=== PATIENT | male | born 1950 | race Caucasian/White ===

== ENCOUNTER → 2021-06-14 16:00 | Outpatient (CLI) | payer MEDICARE, SELFPAY ==
[2021-06-14 14:00] LABS: Basophils # 0.5 K/mm3 (0-0.2); Basophils % 1.2 % (0.1-2.0); Eosinophils % 0.1 % (0.1-12.0); Hematocrit 35.9 % (42.0-52.0); Hemoglobin 11.2 g/dL (14.1-18.0); Lymphocytes # 38.6 K/mm3 (0.7-4.5); Lymphocytes % 87.7 % (10-50); Mean Corpuscular HGB Conc 31.1 g/dL (31.8-35.4); Mean Corpuscular Hemoglobin 29.4 pg (27.0-31.2); Mean Corpuscular Volume 94.5 fl (80-94); Mean Platelet Volume 8.3 fl (7.4-10.4); Monocytes # 0.2 K/mm3 (0.1-1.0); Monocytes % 0.4 % (1.7-9.3); Neutrophils # 4.7 K/mm3 (1.8-7.8); Platelet Count 482 K/mm3 (142-424); Red Cell Distribution Width 16.2 % (11.5-17.5)
[2021-06-14 14:16] LABS: Neutrophils % 10.6 % (37.0-80.0)
[2021-06-14 14:20] LABS: MANUAL DIFFERENTIAL MANUAL DIFFERENTIAL (MANUAL DIFF)
[2021-06-14 15:18] LABS: Lymphocytes % 75 % (10-50); Monocytes % 4 % (2-9); Neutrophils % 15 % (42-76); Total Cells Counted 100
[2021-06-14 15:19] LABS: Anisocytosis 1+; Platelet Estimate Slight Increase
== END ==
PROVIDERS: Visit Provider Family Medicine
DX: J18.9 Pneumonia, unspecified organism (principal)
CPT/HCPCS: 85007; 85025

== ENCOUNTER 2023-09-20 09:41 | Emergency (ER) | payer MEDICARE, SELFPAY ==
[2023-09-20] VITALS (17 sets, daily range): BP systolic 137–171; BP diastolic 87–113; PULSE 89–120; RESP 18–34; TEMP 36.3; O2SAT 89–97; BMI 21.1; BMI 22.6
--- NOTE | 2023-09-20 09:39 | ECG_ITS ---
APPROVED REPORT Exam: Resting ECG HR:129 bpm ECG Measurements Heart Rate 129 AXES UT 127 P 65 QRSd 122 QRS 3 QT 319 T 14 QTc 395 Conclusion SINUS TACHYCARDIA WITH OCCASIONAL VENTRICULAR PREMATURE COMPLEXES WITH OCCASIONAL SUPRAVENTRICULAR PREMATURE COMPLEXES RIGHT BUNDLE BRANCH BLOCK [120+ ms QRS DURATION, UPRIGHT V1, 40+ ms S IN I/aVL/V4/V5/V6] MINIMAL VOLTAGE CRITERIA FOR LVH, CONSIDER NORMAL VARIANT [MEETS CRITERIA IN ONE OF: R(aVL), S(V1), R(V5), R(V5/V6)+S(V1)] ABNORMAL ECG UNCONFIRMED REPORT Electronically signed by : Brandon Trujillo, 09/20/2023 15:00:21
--- NOTE | 2023-09-20 09:40 | PC.NURSE ---
Dr. Trujillo at bedside
--- NOTE | 2023-09-20 09:43 | XR_ITS ---
FINAL REPORT CLINICAL HISTORY: SOA, recent bila pneumonia COVID COMPARISON: None FINDINGS: A single portable view of the chest was obtained. The heart size and pulmonary vascularity are within normal limits. The mediastinum is within normal limits. There are dense airspace opacities in the left perihilar region and left base as well as in the right midlung consistent with acute bilateral pneumonia. As no prior films are available for comparison purposes, the chronicity of the infiltrates cannot be determined. The bony thorax is intact. IMPRESSION: Dense airspace opacities in the left perihilar region and left base as well as in the right midlung consistent with acute bilateral pneumonia of uncertain chronicity. Reviewed, Interpreted and Dictated by Bakari Ferguson MD Transcribed by Cris Mota Authenticated and [facility]
[2023-09-20 09:50] LABS: Basophils # 1.9 K/mm3 (0-0.2); Basophils % 1.7 % (0.1-2.0); Hematocrit 33.6 % (42.0-52.0); Hemoglobin 10.4 g/dL (14.1-18.0); Lymphocytes # 93.3 K/mm3 (0.7-4.5); Mean Corpuscular Hemoglobin 30.7 pg (27.0-31.2); Mean Corpuscular Volume 98.9 fl (80-94); Mean Platelet Volume 8.4 fl (7.4-10.4); Monocytes # 0.3 K/mm3 (0.1-1.0); Monocytes % 0.3 % (1.7-9.3); Neutrophils # 18.2 K/mm3 (1.8-7.8); Platelet Count 437 K/mm3 (142-424); Red Cell Distribution Width 16.2 % (11.5-17.5)
[2023-09-20 09:52] LABS: VBG Base Excess 6.9 mmol/L (-2.4-2.3); VBG HCO3 30.9 mmol/L (23-30); VBG PCO2 45.6 mmol/L (35-51); VBG PH 7.45 mmol/L (7.31-7.41); VBG PO2 23.2 mmol/L (28-40); VBG Total CO2 32.3 mmol/L (23-27)
--- NOTE | 2023-09-20 09:56 | PC.NURSE ---
Dr. Trujillo at bedside for POCUS
[2023-09-20 09:57] LABS: Lactate Venous 2.6 mmol/L (0.4-2.0)
[2023-09-20 09:58] LABS: Potassium 5.7 mmoL/L (3.5-5.1)
--- NOTE | 2023-09-20 09:58 | PC.NURSE ---
called [facility] for most recent medical records our fax number was given([phone])
[2023-09-20 10:00] LABS: Alanine Aminotransferase 70 U/L (12-78); Albumin/Globulin Ratio 0.4 (1.1-1.8); Alkaline Phosphatase 138 U/L (38-126); Aspartate Amino Transferase 52 U/L (17-59); Bilirubin,Total 0.3 mg/dl (0.2-1.3); Blood Urea Nitrogen 19 mg/dl (9-20); Calcium 8.7 mg/dl (8.4-10.2); Carbon Dioxide 29 mmol/L (22.0-30.0); Chloride 98 mmol/L (98-107); Creatinine Clearance Estimated 58 mL/min (50-200); Estimated Glomerular Filt Rate 110 ml/min (>60); GFR (African American) 133 ML/MIN (>60); Globulin 7.5 g/dL (1.3-3.2); Glucose 137 mg/dl (74-100); Sodium 132 mmol/L (136-145); Total Protein,Serum 10.5 g/dl (6.3-8.2)
[2023-09-20 10:01] LABS: Lactic Acid 1.7 mmol/L (0.7-2.1)
[2023-09-20 10:03] LABS: Anion Gap 10.7 mEq/L (5-15)
[2023-09-20 10:04] LABS: Adenovirus,PCR Not Detected (NotDetected); Bordetella Pertussis Not Detected (NotDetected); Chlamydophila Pneumoniae, PCR Not Detected (NotDetected); Coronavirus 19, PCR Not Detected (NotDetected); Coronavirus 229E Not Detected (NotDetected); Coronavirus NL63 Not Detected (NotDetected); Coronavirus OC43 Not Detected (NotDetected); Coronovirus HKU1,PCR Not Detected (NotDetected); Human Metapneumovirus Not Detected (NotDetected); Influenza A, PCR Not Detected (NotDetected); Influenza AH1, 2009 Not Detected (NotDetected); Influenza AH1, PCR Not Detected (NotDetected); Influenza AH3,PCR Not Detected (NotDetected); Influenza B, PCR Not Detected (NotDetected); Mycoplasma Pneumoniae, PCR Not Detected (NotDetected); Parainfluenza 1, PCR Not Detected (NotDetected); Parainfluenza 2, PCR Not Detected (NotDetected); Parainfluenza 3, PCR Not Detected (NotDetected); Parainfluenza 4, PCR Not Detected (NotDetected); Respiratory Syncytial Virus Not Detected (NotDetected); Rhinovirus/Enterovirus Not Detected (NotDetected)
[2023-09-20 10:07] LABS: White Blood Count 113.7 K/mm3 (4.8-10.8)
[2023-09-20 10:08] LABS: MANUAL DIFFERENTIAL MANUAL DIFFERENTIAL (MANUAL DIFF)
[2023-09-20] MEDS: AZITHROMYCIN 500 MG in 0.9 % SODIUM CHLORIDE 250 ML 250 MG IV (10:12)
[2023-09-20 10:19] LABS: Troponin I < 0.01 ng/ml (0.00-0.034)
--- NOTE | 2023-09-20 10:20 | ED_ITS ---
Discharge Plan Disposition Patient Disposition: Xfer Other Chief Complaint: Shortness of Breath/Dyspnea Prescriptions Prescriptions: No Action mupirocin 2 % ointment 1 applic TOPICAL TID Qty: 22 10RF cefdinir 300 mg capsule PO Patient Comments: TAKE 1 CAPSULE BY MOUTH TWICE DAILY dexamethasone 4 mg tablet PO Patient Comments: TAKE 1 TABLET BY MOUTH ONCE DAILY doxycycline hyclate 100 mg capsule PO Patient Comments: TAKE 1 CAPSULE BY MOUTH ONCE DAILY Referrals Follow up/Referrals: Garrett Ball MD [Primary Care Provider] - See instructions Clinical Impressions Clinical Impression: Hyperleukocytosis, Leukemia, Multifocal pneumonia, Severe sepsis Discharge ED Provider: Saravanan Trujillo General Adult HPI General Chief complaint: Shortness of Breath/Dyspnea Stated complaint: SOA, low O2 Time Seen by Provider: 09/20/23 09:41 Mode of Arrival: EMS Source of Information: Patient Limitations: No Limitations Description of Symptoms (Recalled from ER Triage Doc. by RN): Patient was brought into the ED via [facility] for c/o SOA. Patient was seen in his pcp this morning for a follow up from a recent hospitalization for covid pneumonia. History of Present Illness HPI narrative: Patient is a 73-year-old male presents to the emergency department by EMS for respiratory distress. States he was diagnosed with leukemia 10 years ago but never started any therapy because he did not want to take any medications. 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 However a few weeks ago he was admitted to [facility] diagnosed with pneumonia and COVID and was discharged after 3 days he states. He was discharged on September 10 states that he did complete his antibiotics at home. His claim is that he was feeling asymptomatic wearing his oxygen at home and thought that he would be okay without his oxygen started driving to his doctor's appointment for a follow-up when he started to get short of breath. Prior to his COVID diagnosis he states that he did not wear oxygen regularly. Related Data Home Medications Medication Instructions Recorded Confirmed cefdinir 300 mg capsule mg PO 09/20/23 09/20/23 dexamethasone 4 mg tablet mg PO 09/20/23 09/20/23 doxycycline hyclate 100 mg capsule mg PO 09/20/23 09/20/23 Previous Rx's Medication Instructions Recorded mupirocin 2 % topical ointment 1 applic topical TID #22 grams 06/14/21 Allergies Allergy/AdvReac Type Severity Reaction Status Date / Time No Known Allergies Allergy Verified 09/20/23 08:31 [facility] Disclaimer: The information contained in this section may have been updated after the patient was seen, as this information can be updated by other users. Medical History Leukemia Social History Smoking Status: Never smoker alcohol intake: never current occupational status: retired Travel in the last 8 weeks: None ROS Obtained: Yes All systems reviewed & no additional complaints except as documented Physical Exam General General appearance: in distress Respiratory Respiratory exam: Present other (Tachypneic respiratory rate 40 oxygen saturations in the low 90s on 4 L nasal cannula no significant expiratory wheezing or focal respiratory sounds) Cardiovascular Cardiovascular exam: Present tachycardia (Heart rate 140 on my exam, irregular) Abdominal Exam Abdominal exam: Present soft; Absent distention or tenderness Neurological Exam Neurological exam: Present alert and oriented X3 Medical Decision Making Ethan Inquiry Pt receiving controlled substance: No Vital Signs: 09/20/23 09:43 09/20/23 09:50 09/20/23 09:54 Temperature Temperature Source Pulse Rate Pulse Rate [Right Brachial] Respiratory Rate Blood Pressure 165/100 H 171/113 H 147/97 H Blood Pressure [Right Arm] Blood Pressure Mean 115 132 113 Blood Pressure Mean [Right Arm] 02 Sat by Pulse Oximetry 95 Oxygen Delivery Method Nasal Cannula Oxygen Flow Rate (LPM) 3 09/20/23 09:55 09/20/23 10:00 09/20/23 10:17 Temperature 97.4 F L Temperature Source Oral Pulse Rate 112 H Pulse Rate [Right Brachial] 120 H Respiratory Rate 18 32 H 26 H Blood Pressure 153/95 H 138/96 H Blood Pressure [Right Arm] 165/100 H Blood Pressure Mean 113 Blood Pressure Mean [Right Arm] 121 02 Sat by Pulse Oximetry 89 L 92 L 93 L Oxygen Delivery Method Room Air Nasal Cannula Nasal Cannula Oxygen Flow Rate (LPM) 4 4 09/20/23 10:30 09/20/23 11:00 09/20/23 11:31 Temperature Temperature Source Pulse Rate 116 H 112 H 105 H Pulse Rate [Right Brachial] Respiratory Rate 26 H 28 H 29 H Blood Pressure 158/97 H 138/87 142/89 H Blood Pressure [Right Arm] Blood Pressure Mean Blood Pressure Mean [Right Arm] 02 Sat by Pulse Oximetry 94 L 93 L 93 L Oxygen Delivery Method Nasal Cannula Nasal Cannula Nasal Cannula Oxygen Flow Rate (LPM) 4 4 4 09/20/23 12:00 Temperature Temperature Source Pulse Rate 98 H Pulse Rate [Right Brachial] Respiratory Rate 26 H Blood Pressure 137/89 Blood Pressure [Right Arm] Blood Pressure Mean Blood Pressure Mean [Right Arm] 02 Sat by Pulse Oximetry 96 Oxygen Delivery Method Nasal Cannula Oxygen Flow Rate (LPM) 4 Lab Data Lab results reviewed: Yes I reviewed the patient's lab results. Lab Results 09/20/23 09:40: WBC 113.7 H*, RBC 3.40 L, Hgb 10.4 L, Hct 33.6 L, MCV 98.9 H, MCH 30.7, MCHC 31.0 L, RDW 16.2, Plt Count 437 H, MPV 8.4, Neut % (Auto) 16.0 L, Lymph % (Auto) 82.0 H, Carlton % (Auto) 0.3 L, Eos % (Auto) 0.0 L, Baso % (Auto) 1.7, Neut # (Auto) 18.2 H, Lymph # (Auto) 93.3 H, Carlton # (Auto) 0.3, Eos # (Auto) 0.0, Baso # (Auto) 1.9 H, Total Counted 100, Neutrophils % (Manual) 19 L, Lymphocytes % (Manual) 81 H, Platelet Estimate Slight increase, RBC Morphology Normal, Sodium 132 L, Potassium 5.7 H, Chloride 98, Carbon Dioxide 29, Anion Gap 10.7, BUN 19, Creatinine 0.70, Estimated Creat Clear 58, Estimated GFR 110, Est GFR ( Amer) 133, Glucose 137 H, Lactate 1.7, Uric Acid 3.0 L, Calcium 8.7, Magnesium 2.0, Total Bilirubin 0.3, AST 52, ALT 70, Alkaline Phosphatase 138 H, Troponin I < 0.01, NT-Pro-B Natriuret Pep 785 H, Total Protein 10.5 H, A lbumin 3.0 L, Globulin 7.5 H, Albumin/Globulin Ratio 0.4 L 09/20/23 09:43: VBG pH 7.45 H, VBG pCO2 45.6, VBG pO2 23.2 L, VBG HCO3 30.9 H, V BG Total CO2 32.3 H, VBG O2 Saturation , VBG Base Excess 6.9 H, VBG Lactic Acid 2.6 H 09/20/23 12:21: Urine Color Yellow, Urine Appearance Clear, Urine pH 7.0, Ur Specific [place] 1.010, Urine Protein Negative, Urine Glucose (UA) Negative, Urine Ketones Negative, Urine Blood Negative, Urine Nitrate Negative, Urine Bilirubin Negative, Urine Urobilinogen 1.0, Ur Leukocyte Esterase Negative 09/20/23 09:40 09/20/23 09:40 Orders (Tests/Meds): ED MEDICATIONS Generic Name Dose Route Start Last Admin Trade Name Freq PRN Reason Stop Dose Admin Piperacillin Sod/Tazobactam 100 mls @ 200 mls/hr 09/20/23 10:30 09/20/23 11:17 Sod 4.5 gm/ Sodium Chloride IV 09/30/23 10:29 200 mls/hr Q6H COURTNEY Administration Discontinued Medications Generic Name Dose Route Start Last Admin Trade Name Freq PRN Reason Stop Dose Admin Lactated Ringer's 1,000 mls @ 999 mls/hr 09/20/23 10:00 09/20/23 11:17 Lactated Ringer's 1000 Ml Bag IV 09/20/23 11:00 999 mls/hr .Q1H1M COURTNEY Administration Azithromycin 500 mg/ Sodium 250 mls @ 250 mls/hr 09/20/23 10:03 09/20/23 10:12 Chloride IV 09/20/23 10:04 250 mls/hr ONCE ONE Administration Vancomycin/PEG/NADA/Lysine/Water 1.25 gm in 250 mls @ 125 mls/hr 09/20/23 10:15 09/20/23 11:26 Vancomycin 1.25gm/250ml (Peg) Premix IV 09/20/23 12:14 125 mls/hr ONCE ONE Administration Iopamidol 70 ml 09/20/23 10:49 09/20/23 10:50 Iopamidol-370 (76%);100ml Bottle IV 09/20/23 10:50 70 ml ONCE ONE Administration Miscellaneous 1 each 09/20/23 10:15 Vancomycin Consult Request NOTAPPLIC 10/20/23 10:14 CONSULT PHARMACY [facility] Sodium Chloride 50 ml 09/20/23 10:49 09/20/23 10:50 0.9 % Sodium Chloride 50 Ml Vial IV 09/20/23 10:50 50 ml ONCE ONE Administration Sodium Chloride 10 ml 09/20/23 10:49 09/20/23 10:50 Sodium Chloride 0.9% 10ml Syr (Rad Only) IV 09/20/23 10:50 10 ml ONCE ONE Administration ORDERS Category Date Time Status CT angio chest PE protocol Stat Cat Scan 09/20/23 10:27 Taken POCUS Point of Care (ER Only) Stat Exams 09/20/23 09:52 Completed XR chest portable Stat Exams 09/20/23 09:43 Taken BNP [NT Pro Brain Natriuretic Pep.] Stat Lab 09/20/23 09:40 Completed Complete Blood Count Auto Diff Stat Lab 09/20/23 09:40 Completed Comprehensive Metabolic Panel Stat Lab 09/20/23 09:40 Completed Full Resp Panel w/COVID ([facility]) Routine Lab 09/20/23 09:58 Received Immunoglobulin G, Qn Stat Lab 09/20/23 09:40 Received Lactic Acid Stat Lab 09/20/23 09:40 Completed Magnesium Stat Lab 09/20/23 09:40 Completed Troponin I Q3H Lab 09/20/23 12:45 Ordered Troponin I Q3H Lab 09/20/23 15:45 Ordered Troponin I Stat Lab 09/20/23 09:40 Completed UA [Urinalysis and Microscopic] Stat Lab 09/20/23 12:21 Results Uric Acid Stat Lab 09/20/23 09:40 Completed Blood Culture Stat Micro 09/20/23 10:12 Received Venous Blood Gas Stat RT 09/20/23 09:43 Completed ECG Data Tracing #1: I reviewed this ECG and interpreted as documented below: Ventricular rate of 129 normal axis there is a right bundle branch block no acute ischemic changes noted there are premature atrial complexes and some PVCs as well Medical Decision Narrative: Patient is a 73-year-old male presenting today in respiratory distress tachypneic and tachycardic. On my evaluation his respiratory rate is 40 and his heart rate is 140. Chest x-ray was performed which I personally interpreted shows multifocal airspace disease with a dense consolidation on the left. Additionally patient's labs demonstrate that he has a hyperleukocytosis I was able to get some labs from his recent hospitalization at which point his white blood cell count was 40 but his white blood cell count today is greater than 100,000. I suspect he may have some significant leukostasis causing respiratory symptoms as well. Therefore his respiratory distress may be multifactorial including bacterial/viral pneumonia and/or leukostasis. It is unclear as to what type of leukemia he had, he is unsure of the exact name. 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 However in that situation Luis static symptoms are less likely also could have CML with a myeloid blast crisis or an alternative acute leukemia. Vancomycin Zosyn and azithromycin have been ordered as well as IV fluids. I will have a goals of care discussion with this patient and reassess. 1051 I was able to get records from [facility]. His white blood cell count was 50 on the . Therefore is more than doubled in less than 10 days. 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 I discussed this with the patient he is not sure of the exact type of leukemia that he has had in the past but suspecting that this is in fact the case patient clearly has evidence of active disease I had a goals of care discussion with him since he has been adamant about declining any type of oncologic intervention in the past and told him with his significant worsening that he is at risk of, and mild to be actively having symptoms of leukostasis seen only in hyperleukocytosis greater than 200,000 in the setting of CLL. Symptoms may be just from multifocal pneumonia but he still needs to be in a higher level of care where he has inpatient oncologic evaluation which may require induction chemotherapy or leukapheresis. I discussed this with the patient and his family and he states that he would like to proceed with these options and is willing potentially to go through this treatment if it is indicated according to the oncologist. Therefore I will attempt to transfer the patient for further management at a higher level of care. The [facility] will be my first call. Reassessment 0569 I spoke with [facility] transfer center and the hematology oncology doctor on-call who felt the patient did not need emergent transfer. They felt that the patient to be followed up outpatient however I spoke with our hospital medicine doctor here who is still uncomfortable managing this here without inpatient oncology. I subsequently spoke to [facility] I spoke with the [facility] on the hospital medicine service and they accepted the patient under the attending Dr. Hdez patient has remained stable and infection improving hemodynamically. Family is aware of this plan and agreeable. Critical Care Critical Care Time Critical Care Time: Yes Attestation: On 09/20/23, the high probability of a clinically significant, sudden or life threatening deterioration of the following system(s) required my full and direct attention, intervention and personal management. The time I documented below is in addition to time spent performing reported procedures but includes the following listed in this critical care notation. Total Time Total Critical Care Time: 65
--- NOTE | 2023-09-20 10:27 | CT_ITS ---
FINAL REPORT TECHNIQUE: The patient was injected with IV contrast. Axial images were obtained through the chest in a PE protocol. 3-D reconstruction images were also performed. Individualized dose reduction techniques using automated exposure control or adjustment of the MA and/or KV according to patient's size were employed. CLINICAL HISTORY: f/u abn CXR, WBC >100k FINDINGS: Mediastinal vasculature is adequately opacified. No pulmonary artery filling defects are identified to suggest PE. There is no aortic dissection. There is no axillary adenopathy. There is no hilar or mediastinal adenopathy. The heart size is normal. There is no pericardial or pleural effusion. Limited images of the upper abdomen are unremarkable. There is extensive airspace opacity throughout the left upper lobe and lingula. There are patchy airspace infiltrates in the periphery of the right upper lobe and both lower lobes. IMPRESSION: No pulmonary embolus or dissection. Multifocal airspace infiltrates consistent with acute pneumonia. Reviewed, Interpreted and Dictated by Bakari Ferguson MD Transcribed by Marlee Lee Authenticated and . [facility]
[2023-09-20 10:32] LABS: NT Pro Brain Natriuretic Pep. 785 pg/mL (0-125)
--- NOTE | 2023-09-20 10:32 | PC.NURSE ---
Dr. Trujillo at bedside discussing care and results with pt & his family.
--- NOTE | 2023-09-20 10:42 | PC.NURSE ---
Calling [facility] for transfer
[2023-09-20] MEDS: SODIUM CHLORIDE 0.9% 10ML SYR (RAD ONLY) 10 ML IV (10:50)
[2023-09-20] MEDS: 0.9 % SODIUM CHLORIDE 50 ML VIAL IV (10:50)
[2023-09-20] MEDS: IOPAMIDOL-370 (76%);100ML BOTTLE 70 ML IV (10:50)
[2023-09-20 11:00] LABS: Lymphocytes % 81 % (10-50); Neutrophils % 19 % (42-76); RBC Morphology Normal; Total Cells Counted 100
[2023-09-20 11:01] LABS: Platelet Estimate Slight Increase
[2023-09-20] MEDS: LACTATED RINGERS 1000ML 1,000 ML 999 ML IV (11:17)
[2023-09-20] MEDS: PIPERACILLIN/TAZO 4.5 GM in 0.9 % SODIUM CHLORIDE 100 ML IV (11:17)
[2023-09-20] MEDS: VANCOMYCIN/WATER FOR INJ (PEG) 1.25 GM/250 ML PIGGYBACK IV (11:26)
--- NOTE | 2023-09-20 11:30 | PC.NURSE ---
called [facility] for status update let me know they are still waiting on a provider
--- NOTE | 2023-09-20 11:46 | PC.NURSE ---
speaking with [facility]
--- NOTE | 2023-09-20 12:04 | PC.NURSE ---
Dr. Trujillo s/w Dr. Trinh
--- NOTE | 2023-09-20 12:13 | PC.NURSE ---
calling [facility] for transfer
[2023-09-20 12:24] LABS: Microscopic, Urine URINE MICROSCOPIC (MICROSCOPIC)
[2023-09-20 12:27] LABS: Appearance,Urine CLEAR (Clear); Bilirubin,Urine Negative (Negative); Blood, Urine Negative (Negative); Color,Urine YELLOW (Yellow); Glucose,Urine (UA) Negative (Negative); Ketones,Urine Negative (Negative); Leukocyte Esterase,Urine Negative (Negative); Nitrate,Urine Negative (Negative); Protein,Urine Negative (Negative)
[2023-09-20 13:04] LABS: RBC,Urine Occasional #/hpf (0-3)
[2023-09-20 13:06] LABS: Bacteria,Urine Trace /lpf
[2023-09-20 13:52] LABS: Reflex Lactic Add Lactic Reflex
--- NOTE | 2023-09-20 14:25 | PC.NURSE ---
rounded on pt let him know we were still waiting on bed assingment
--- NOTE | 2023-09-20 14:53 | PC.NURSE ---
called ems let them know pt was ready
--- NOTE | 2023-09-20 15:11 | PC.NURSE ---
Called report to [facility]- A unit, . Gave report to [facility] notified that pt is ready for transport
[2023-09-21 16:54] LABS: Immunoglobulin G, Qn 5986 mg/dL (603-1613)
== END 2023-09-20 15:29 | disposition other institution (70) ==
PROVIDERS: Emergency Provider Student in an Organized Health Care Education/Training Program; PCP Family Medicine
DX: A41.89 Other specified sepsis (principal); R65.20 Severe sepsis without septic shock; J18.8 Other pneumonia, unspecified organism; D72.829 Elevated white blood cell count, unspecified; E87.5 Hyperkalemia; E87.1 Hypo-osmolality and hyponatremia; C85.90 Non-Hodgkin lymphoma, unspecified, unspecified site; R94.31 Abnormal electrocardiogram [ECG] [EKG]; R06.03 Acute respiratory distress
CPT/HCPCS: 71045; 71275; 80053; 81001; 82784; 82803; 83605; 83735; 83880; 84484; 84550; 85007; 85025; 87040; 87086; 87581; 87632; 87635; 87798; 93005; 96365; 96366; 96375; 99291; J0456; J2543; Q9967

== ENCOUNTER 2023-09-27 12:05 | Outpatient (CLI) | payer MEDICARE, SELFPAY ==
[2023-09-27] MEDS: cefTRIAXone 1GM VIAL 2 GM IM (13:03)
[2023-09-27 13:10] VITALS: BP 116/74; PULSE 68; RESP 18; TEMP 36.8; O2SAT 98
--- NOTE | 2023-09-27 14:19 | PC.NURSE ---
Pt and family arrived today and stated pts oxygen tank was empty and they didnt have another one. Stated his O2 tanks were serviced by [employer]. Millie barrera contacted about potential options. she called [employer] and they explained that the patients family could either come pickle maker a portable tank or one could be delivered to the hospital after 5pm. Pt and family declined both these options and stated they would drive straight home to change out his tanks because they could not wait that long.
== END 2023-09-27 13:15 | disposition home or self-care (01) ==
LOC: INF 12:07
PROVIDERS: PCP Family Medicine
DX: A41.89 Other specified sepsis (principal)
CPT/HCPCS: 96372; J0696

== ENCOUNTER 2023-09-28 12:06 | Outpatient (CLI) | payer MEDICARE, SELFPAY ==
[2023-09-28 12:41] VITALS: BP 117/68; PULSE 81; RESP 18; TEMP 36.7; O2SAT 99
[2023-09-28] MEDS: cefTRIAXone 1GM VIAL 2 GM IM (12:41)
== END 2023-09-28 12:50 | disposition home or self-care (01) ==
LOC: INF 12:07
PROVIDERS: PCP Family Medicine; Visit Provider Internal Medicine
DX: A41.89 Other specified sepsis (principal)
CPT/HCPCS: 96372; J0696

== ENCOUNTER 2023-09-29 12:00 | Outpatient (CLI) | payer MEDICARE, SELFPAY ==
[2023-09-29 12:13] VITALS: BMI 19.0
[2023-09-29 12:35] VITALS: BP 133/72; PULSE 107; RESP 17; O2SAT 100
[2023-09-29] MEDS: cefTRIAXone 1GM VIAL 2 GM IM (12:35)
[2023-09-29 12:44] LABS: Chloride 102 mmol/L (98-107); Potassium 4.1 mmoL/L (3.5-5.1); Sodium 134 mmol/L (136-145)
[2023-09-29 12:46] LABS: Blood Urea Nitrogen 16 mg/dl (9-20); Creatinine Clearance Estimated 58 mL/min (50-200); Estimated Glomerular Filt Rate 110 ml/min (>60); GFR (African American) 133 ML/MIN (>60)
[2023-09-29 12:47] LABS: Alanine Aminotransferase 49 U/L (12-78); Albumin Level 2.6 g/dl (3.5-5.0); Albumin/Globulin Ratio 0.4 (1.1-1.8); Alkaline Phosphatase 112 U/L (38-126); Anion Gap 6.1 mEq/L (5-15); Aspartate Amino Transferase 38 U/L (17-59); Calcium 8.3 mg/dl (8.4-10.2); Carbon Dioxide 30 mmol/L (22.0-30.0); Globulin 6.6 g/dL (1.3-3.2); Glucose 121 mg/dl (74-100); Total Protein,Serum 9.2 g/dl (6.3-8.2)
[2023-09-29 12:50] LABS: Basophils # 1.3 K/mm3 (0-0.2); Basophils % 2.6 % (0.1-2.0); Eosinophils # 0.1 K/mm3 (0.0-0.4); Eosinophils % 0.2 % (0.1-12.0); Hematocrit 26.9 % (42.0-52.0); Hemoglobin 8.5 g/dL (14.1-18.0); Lymphocytes # 39.7 K/mm3 (0.7-4.5); Lymphocytes % 83.3 % (10-50); Mean Corpuscular HGB Conc 31.6 g/dL (31.8-35.4); Mean Corpuscular Hemoglobin 30.2 pg (27.0-31.2); Mean Corpuscular Volume 95.3 fl (80-94); Mean Platelet Volume 8.5 fl (7.4-10.4); Monocytes # 0.1 K/mm3 (0.1-1.0); Monocytes % 0.3 % (1.7-9.3); Neutrophils # 6.4 K/mm3 (1.8-7.8); Platelet Count 181 K/mm3 (142-424); Red Blood Count 2.82 M/mm3 (4.60-6.20); Red Cell Distribution Width 16.7 % (11.5-17.5)
[2023-09-29 12:52] LABS: Bilirubin,Total 0.1 mg/dl (0.2-1.3)
[2023-09-29 12:53] LABS: C-Reactive Protein 84.8 mg/L (0-4)
[2023-09-29 13:06] LABS: Neutrophils % 13.5 % (37.0-80.0); White Blood Count 47.6 K/mm3 (4.8-10.8)
[2023-09-29 13:07] LABS: MANUAL DIFFERENTIAL MANUAL DIFFERENTIAL (MANUAL DIFF)
[2023-09-29 13:38] LABS: Lymphocytes % 87 % (10-50); Neutrophils % 13 % (42-76); Platelet Estimate Normal; RBC Morphology Normal; Total Cells Counted 100
== END 2023-09-29 12:50 | disposition home or self-care (01) ==
LOC: INF 12:01
PROVIDERS: PCP Family Medicine; Visit Provider Pediatrics Adolescent Medicine
DX: J18.9 Pneumonia, unspecified organism (principal); A41.89 Other specified sepsis
CPT/HCPCS: 36415; 80053; 85007; 85025; 86140; 96372; J0696

== ENCOUNTER 2023-09-30 11:46 | Outpatient (CLI) | payer MEDICARE, SELFPAY ==
[2023-09-30] MEDS: cefTRIAXone 1GM VIAL 2 GM IM (12:06)
== END 2023-09-30 23:59 | disposition home or self-care (01) ==
LOC: INF 11:47
PROVIDERS: PCP Family Medicine; Visit Provider Internal Medicine Infectious Disease
DX: J18.9 Pneumonia, unspecified organism (principal); A41.89 Other specified sepsis
CPT/HCPCS: 96372; J0696

== ENCOUNTER 2023-10-13 18:00 | Outpatient (CLI) | payer MEDICARE, SELFPAY ==
[2023-10-13 18:54] LABS: Alanine Aminotransferase 19 U/L (12-78); Albumin Level 3.1 g/dl (3.5-5.0); Albumin/Globulin Ratio 0.5 (1.1-1.8); Alkaline Phosphatase 96 U/L (38-126); Anion Gap 9.9 mEq/L (5-15); Aspartate Amino Transferase 18 U/L (17-59); Bilirubin,Total 0.2 mg/dl (0.2-1.3); Blood Urea Nitrogen 18 mg/dl (9-20); Calcium 8.6 mg/dl (8.4-10.2); Carbon Dioxide 28 mmol/L (22.0-30.0); Chloride 103 mmol/L (98-107); Estimated Glomerular Filt Rate 110 ml/min (>60); GFR (African American) 133 ML/MIN (>60); Globulin 6.5 g/dL (1.3-3.2); Glucose 121 mg/dl (74-100); Potassium 3.9 mmoL/L (3.5-5.1); Sodium 137 mmol/L (136-145); Total Protein,Serum 9.6 g/dl (6.3-8.2)
[2023-10-13 19:06] LABS: Basophils # 0.5 K/mm3 (0-0.2); Basophils % 1.3 % (0.1-2.0); Eosinophils # 0.2 K/mm3 (0.0-0.4); Eosinophils % 0.5 % (0.1-12.0); Hemoglobin 9.8 g/dL (14.1-18.0); Lymphocytes # 32.7 K/mm3 (0.7-4.5); Lymphocytes % 83.5 % (10-50); Mean Corpuscular HGB Conc 30.7 g/dL (31.8-35.4); Mean Corpuscular Hemoglobin 29.7 pg (27.0-31.2); Mean Corpuscular Volume 96.9 fl (80-94); Monocytes # 0.3 K/mm3 (0.1-1.0); Monocytes % 0.7 % (1.7-9.3); Neutrophils # 5.5 K/mm3 (1.8-7.8); Platelet Count 400 K/mm3 (142-424); Red Cell Distribution Width 18.5 % (11.5-17.5); White Blood Count 39.1 K/mm3 (4.8-10.8)
[2023-10-13 19:10] LABS: MANUAL DIFFERENTIAL MANUAL DIFFERENTIAL (MANUAL DIFF)
[2023-10-13 20:22] LABS: Anisocytosis 2+; Lymphocytes % 91 % (10-50); Neutrophils % 9 % (42-76); Platelet Estimate Normal; Poikilocytosis 1+; Rouleaux 1+; Total Cells Counted 100
== END 2023-10-13 23:59 | disposition home or self-care (01) ==
LOC: LAB.DROPOF 10-14 09:01
PROVIDERS: PCP Family Medicine; Visit Provider Family Medicine
DX: U07.1 COVID-19 (principal); A41.9 Sepsis, unspecified organism; R65.20 Severe sepsis without septic shock
CPT/HCPCS: 80053; 85007; 85025; 85027

== ENCOUNTER 2023-11-10 11:17 | Outpatient (CLI) | payer MEDICARE, SELFPAY ==
[2023-11-10 18:27] LABS: Basophils # 0.2 K/mm3 (0-0.2); Basophils % 0.8 % (0.1-2.0); Eosinophils # 0.1 K/mm3 (0.0-0.4); Eosinophils % 0.7 % (0.1-12.0); Hemoglobin 10.7 g/dL (14.1-18.0); Lymphocytes # 15.8 K/mm3 (0.7-4.5); Lymphocytes % 81.6 % (10-50); Mean Corpuscular HGB Conc 32.5 g/dL (31.8-35.4); Mean Corpuscular Hemoglobin 31.2 pg (27.0-31.2); Mean Corpuscular Volume 95.9 fl (80-94); Mean Platelet Volume 8.7 fl (7.4-10.4); Monocytes # 0.2 K/mm3 (0.1-1.0); Neutrophils # 3.1 K/mm3 (1.8-7.8); Neutrophils % 15.8 % (37.0-80.0); Platelet Count 238 K/mm3 (142-424); Red Blood Count 3.44 M/mm3 (4.60-6.20); Red Cell Distribution Width 18.8 % (11.5-17.5); White Blood Count 19.3 K/mm3 (4.8-10.8)
[2023-11-10 18:33] LABS: MANUAL DIFFERENTIAL MANUAL DIFFERENTIAL (MANUAL DIFF)
[2023-11-10 19:09] LABS: Lymphocytes % 79 % (10-50); Monocytes % 3 % (2-9); Neutrophils % 18 % (42-76); Total Cells Counted 100
[2023-11-10 19:12] LABS: Anisocytosis 1+; Platelet Estimate Normal
[2023-11-10 19:15] LABS: Alanine Aminotransferase 11 U/L (12-78); Albumin Level 3.5 g/dl (3.5-5.0); Albumin/Globulin Ratio 0.6 (1.1-1.8); Alkaline Phosphatase 75 U/L (38-126); Anion Gap 6.2 mEq/L (5-15); Aspartate Amino Transferase 15 U/L (17-59); Blood Urea Nitrogen 26 mg/dl (9-20); Carbon Dioxide 27 mmol/L (22.0-30.0); Chloride 107 mmol/L (98-107); Estimated Glomerular Filt Rate 94 ml/min (>60); GFR (African American) 114 ML/MIN (>60); Globulin 5.9 g/dL (1.3-3.2); Glucose 114 mg/dl (74-100); Potassium 4.2 mmoL/L (3.5-5.1); Sodium 136 mmol/L (136-145); Total Protein,Serum 9.4 g/dl (6.3-8.2)
[2023-11-10 19:18] LABS: Bilirubin,Total 0.1 mg/dl (0.2-1.3)
== END 2023-11-10 23:59 | disposition home or self-care (01) ==
LOC: LAB.DROPOF 11-13 11:17
PROVIDERS: PCP Family Medicine; Visit Provider Family Medicine
DX: R53.1 Weakness (principal)
CPT/HCPCS: 80053; 85007; 85025; 85027

== ENCOUNTER 2024-02-16 09:00 | Outpatient (CLI) | payer MEDICARE, SELFPAY ==
[2024-02-16 18:29] LABS: Albumin Level 3.8 g/dl (3.5-5.0); Chloride 105 mmol/L (98-107); Sodium 138 mmol/L (136-145)
[2024-02-16 18:31] LABS: Basophils # 0.1 K/mm3 (0-0.2); Basophils % 0.9 % (0.1-2.0); Eosinophils # 0.1 K/mm3 (0.0-0.4); Eosinophils % 0.4 % (0.1-12.0); Hematocrit 33.1 % (42.0-52.0); Hemoglobin 11.2 g/dL (14.1-18.0); Lymphocytes % 78.2 % (10-50); Mean Corpuscular HGB Conc 33.8 g/dL (31.8-35.4); Mean Corpuscular Volume 94.7 fl (80-94); Mean Platelet Volume 8.9 fl (7.4-10.4); Monocytes # 0.2 K/mm3 (0.1-1.0); Monocytes % 1.6 % (1.7-9.3); Neutrophils # 2.7 K/mm3 (1.8-7.8); Neutrophils % 18.9 % (37.0-80.0); Platelet Count 160 K/mm3 (142-424); Red Blood Count 3.49 M/mm3 (4.60-6.20); Red Cell Distribution Width 16.7 % (11.5-17.5); White Blood Count 14.1 K/mm3 (4.8-10.8)
[2024-02-16 18:32] LABS: Alanine Aminotransferase 29 U/L (12-78); Albumin/Globulin Ratio 0.6 (1.1-1.8); Alkaline Phosphatase 57 U/L (38-126); Aspartate Amino Transferase 31 U/L (17-59); Bilirubin,Total 0.4 mg/dl (0.2-1.3); Blood Urea Nitrogen 22 mg/dl (9-20); Carbon Dioxide 28 mmol/L (22.0-30.0); Cholesterol 174 mg/dl (140-200); Estimated Glomerular Filt Rate 82 ml/min (>60); GFR (African American) 100 ML/MIN (>60); Globulin 6.3 g/dL (1.3-3.2); Total Protein,Serum 10.1 g/dl (6.3-8.2); Triglycerides 84 mg/dl (30-150); VLDL Cholesterol 17 mg/dL (0-40)
[2024-02-16 18:33] LABS: Glucose 85 mg/dl (74-100); HDL Cholesterol 29 mg/dl (40-60)
[2024-02-16 18:44] LABS: Direct LDL Cholesterol 99.51 mg/dL (100-129); MANUAL DIFFERENTIAL MANUAL DIFFERENTIAL (MANUAL DIFF)
[2024-02-16 19:01] LABS: Prostate Specific Ag Screen 2.8 ng/ml (0.0-4.0)
[2024-02-16 20:13] LABS: Eosinophils % 1 % (0-3); Lymphocytes % 68 % (10-50); Monocytes % 4 % (2-9); Neutrophils % 27 % (42-76); Total Cells Counted 100
[2024-02-16 20:14] LABS: Anisocytosis 2+; Microcytosis 2+; Platelet Estimate Slight Decrease; Polychromasia 1+
== END 2024-02-16 23:59 | disposition home or self-care (01) ==
LOC: LAB.DROPOF 02-19 09:01
PROVIDERS: PCP Family Medicine; Visit Provider Family Medicine
DX: C95.90 Leukemia, unspecified not having achieved remission (principal); E78.5 Hyperlipidemia, unspecified; Z12.5 Encounter for screening for malignant neoplasm of prostate
CPT/HCPCS: 80053; 80061; 85007; 85025; 85027; G0103

== ENCOUNTER 2024-06-05 11:45 | Outpatient (CLI) | payer MEDICARE, SELFPAY ==
[2024-06-05 18:50] LABS: Basophils # 0.1 K/mm3 (0-0.2); Basophils % 0.3 % (0.1-2.0); Eosinophils # 0.1 K/mm3 (0.0-0.4); Eosinophils % 0.5 % (0.1-12.0); Hematocrit 31.7 % (42.0-52.0); Hemoglobin 10.1 g/dL (14.1-18.0); Lymphocytes # 17.6 K/mm3 (0.7-4.5); Mean Corpuscular HGB Conc 31.9 g/dL (31.8-35.4); Mean Corpuscular Hemoglobin 30.8 pg (27.0-31.2); Mean Corpuscular Volume 96.6 fl (80-94); Mean Platelet Volume 9.6 fl (7.4-10.4); Monocytes # 0.3 K/mm3 (0.1-1.0); Monocytes % 1.2 % (1.7-9.3); Neutrophils # 3.7 K/mm3 (1.8-7.8); Neutrophils % 16.8 % (37.0-80.0); Platelet Count 195 K/mm3 (142-424); Red Blood Count 3.28 M/mm3 (4.60-6.20); White Blood Count 21.7 K/mm3 (4.8-10.8)
[2024-06-05 18:55] LABS: MANUAL DIFFERENTIAL MANUAL DIFFERENTIAL (MANUAL DIFF)
[2024-06-05 20:05] LABS: Lymphocytes % 76 % (10-50); Monocytes % 4 % (2-9); Neutrophils % 18 % (42-76); RBC Morphology Normal; Total Cells Counted 100
[2024-06-05 20:06] LABS: Platelet Estimate Normal
== END 2024-06-05 23:59 | disposition home or self-care (01) ==
LOC: LAB.DROPOF 06-06 13:16
PROVIDERS: PCP Family Medicine; Visit Provider Family Medicine
DX: C95.90 Leukemia, unspecified not having achieved remission (principal)
CPT/HCPCS: 85007; 85025; 85027

== ENCOUNTER 2024-09-06 10:00 | Outpatient (CLI) | payer MEDICARE, SELFPAY ==
[2024-09-06 18:47] LABS: Basophils % 0.2 % (0.1-2.0); Eosinophils # 0.1 Kmm3 (0.0-0.4); Eosinophils % 0.5 % (0.1-12.0); Hematocrit 30.8 % (42.0-52.0); Hemoglobin 9.9 g/dL (14.1-18.0); Immature Granulocytes # 0.03 10^3uL; Immature Granulocytes % 0.2 %; Lymphocytes # 14.7 K/mm3 (0.7-4.5); Lymphocytes % 84.9 % (10-50); Mean Corpuscular HGB Conc 32.1 g/dL (31.8-35.4); Mean Corpuscular Hemoglobin 30.8 pg (27.0-31.2); Mean Platelet Volume 9.5 fl (7.4-10.4); Monocytes # 0.2 K/mm3 (0.1-1.0); Monocytes % 1.3 % (1.7-9.3); Neutrophils # 2.2 K/mm3 (1.8-7.8); Neutrophils % 12.9 % (37.0-80.0); Nucleated Red Blood Cells # 0 10^3/uL; Nucleated Red Blood Cells % 0 %; Platelet Count 152 K/mm3 (142-424); Red Blood Count 3.21 M/mm3 (4.60-6.20); Red Cell Distribution Width 17.5 % (11.5-17.5); Red Cell Distribution Width-SD 61.2 fL; White Blood Count 17.3 K/mm3 (4.8-10.8)
[2024-09-06 18:48] LABS: MANUAL DIFFERENTIAL MANUAL DIFFERENTIAL (MANUAL DIFF)
[2024-09-06 18:52] LABS: Alanine Aminotransferase 18 U/L (12-78); Albumin Level 3.5 g/dl (3.5-5.0); Albumin/Globulin Ratio 0.6 (1.1-1.8); Alkaline Phosphatase 79 U/L (38-126); Anion Gap 5.4 mEq/L (5-15); Aspartate Amino Transferase 24 U/L (17-59); Bilirubin,Total 0.4 mg/dl (0.2-1.3); Blood Urea Nitrogen 27 mg/dl (9-20); Calcium 8.5 mg/dl (8.4-10.2); Carbon Dioxide 26 mmol/L (22.0-30.0); Chloride 108 mmol/L (98-107); Chol/HDL Ratio 5.2 (1-3.5); Cholesterol 135 mg/dl (140-200); Estimated Glomerular Filt Rate 73 ml/min (>60); GFR (African American) 88 ML/MIN (>60); Globulin 6.1 g/dL (1.3-3.2); Glucose 101 mg/dl (74-100); HDL Cholesterol 26 mg/dl (40-60); Potassium 4.4 mmoL/L (3.5-5.1); Sodium 135 mmol/L (136-145); Total Protein,Serum 9.6 g/dl (6.3-8.2); Triglycerides 57 mg/dl (30-150); VLDL Cholesterol 11 mg/dL (0-40)
[2024-09-06 19:03] LABS: Direct LDL Cholesterol 86.04 mg/dL (100-129)
[2024-09-06 19:20] LABS: Lymphocytes % 83 % (10-50); Monocytes % 2 % (2-9); Neutrophils % 14 % (42-76); Total Cells Counted 100
[2024-09-06 19:21] LABS: Platelet Estimate Normal; RBC Morphology Normal
== END 2024-09-06 23:59 | disposition home or self-care (01) ==
LOC: LAB 09-09 09:53
PROVIDERS: PCP Family Medicine; Visit Provider Family Medicine
DX: C95.90 Leukemia, unspecified not having achieved remission (principal)
CPT/HCPCS: 80053; 80061; 85007; 85025; 85027

== ENCOUNTER 2025-02-19 13:00 | Outpatient (CLI) | payer MEDICARE, SELFPAY ==
[2025-02-19 15:28] LABS: Hematocrit 30.0 % (42.0-52.0); Hemoglobin 9.7 g/dL (14.1-18.0); Immature Granulocytes % 0.1 %; Mean Corpuscular HGB Conc 32.3 g/dL (31.8-35.4); Mean Corpuscular Hemoglobin 30.9 pg (27.0-31.2); Mean Corpuscular Volume 95.5 fl (80-94); Nucleated Red Blood Cells % 0 %; Platelet Count 137 K/mm3 (142-424); Red Blood Count 3.14 M/mm3 (4.60-6.20); Red Cell Distribution Width-SD 57.9 fL; White Blood Count 19.3 K/mm3 (4.8-10.8)
[2025-02-19 15:55] LABS: Alanine Aminotransferase 23 U/L (12-78); Albumin Level 3.5 g/dl (3.5-5.0); Albumin/Globulin Ratio 0.5 (1.1-1.8); Alkaline Phosphatase 79 U/L (38-126); Anion Gap 12.1 mEq/L (5-15); Aspartate Amino Transferase 30 U/L (17-59); Bilirubin,Total 0.5 mg/dl (0.2-1.3); Blood Urea Nitrogen 28 mg/dl (9-20); Calcium 8.6 mg/dl (8.4-10.2); Carbon Dioxide 25 mmol/L (22.0-30.0); Chloride 104 mmol/L (98-107); Cholesterol 141 mg/dl (140-200); Creatinine,Serum 1.20 mg/dl (0.66-1.25); Estimated Glomerular Filt Rate 59 ml/min (>60); GFR (African American) 71 ML/MIN (>60); Globulin 7.2 g/dL (1.3-3.2); Glucose 87 mg/dl (74-100); HDL Cholesterol 26 mg/dl (40-60); Potassium 4.1 mmoL/L (3.5-5.1); Sodium 137 mmol/L (136-145); Total Protein,Serum 10.7 g/dl (6.3-8.2); Triglycerides 53 mg/dl (30-150)
[2025-02-19 16:53] LABS: Anisocytosis 1+; Macrocytosis 1+; Poikilocytosis 1+; Polychromasia 1+; Total Cells Counted 100
[2025-02-19 16:54] LABS: Basophilic Stippling 1+; Microcytosis 1+
--- OUTSIDE RECORDS SUMMARY | 2025-02-20 12:54 | XMS_ITS | Clinical Summary ---
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 35410432 (SNOMED CT) 10/02 Active 10/02 Lázaro Spears MD Dermatitis caused by drug AND/OR medicine taken internally Fall risk 462737025 (SNOMED CT) 10/02 Active 10/02 Lázaro Spears MD At increased risk for falls Personal history of COVID-19 9646688091781 44902 (SNOMED CT) 09/28 Active 09/28 Ellen Fine History of SARS-CoV-2 Strep Pneumoniae Pneumonia J13 (ICD-10-CM) 09/28 Active 09/28 Ellen Babatunde Pneumonia due to Streptococcus pneumoniae Acute respiratory failure with hypoxia 14854672 (SNOMED CT) 09/28 Active 09/28 Ellen Babatunde Acute respiratory failure Hyponatremia 86605045 (SNOMED CT) 09/28 Active 09/28 Ellen Babatunde Hyponatremia Hypocalcemia 9640030 (SNOMED CT) 09/28 Active 09/28 Ellen Babatunde Hypocalcemia Anemia in chronic diseases(docu ment disease) D63.8 (ICD-10-CM) 09/28 Active 09/28 Ellen Babatunde Anemia in other chronic diseases classified elsewhere Long QT syndrome 7596419 (SNOMED CT) 09/28 Active 09/28 Ellen Babatunde Long QT syndrome Pneumonia 604290596 (SNOMED CT) 09/28 Active 09/28 Ellen Fine Pneumonia Chronic lymphoid leukemia, without mention of having achieved remission 77858669 (SNOMED CT) 09/28 Active 09/28 Ellen Fine Chronic lymphoid leukemia, disease Benign Essential Hypertension 81620508 (OMED CT) 09/28 Active 09/28 Ellen Fine Benign hypertension Medications Medication Instructions Start Date Stop Date Generic Name [facility] Provider DOXYCYCLINE HYCLATE 100 MG CAPS bid oral doxycycline hyclate 49551198102 Marii Evans ELIQUIS 5 MG TABS apixaban [id number] Marii Evans ceftriaxone mason calero Rocephin 2G IV or IM [id number] 9 ceftriaxone mason Stern RN GUAIFENESIN ER 600 MG [id number] Take 1 tablet (600 mg total) by mouth 2 (two) times daily for 5 days. 7 guaifenesin [id number] QIE qieuser FERROUS SULFATE 324 (65 Fe) MG TBEC Take 1 tablet (325 mg total) by mouth daily for 30 days. 8 ferrous sulfate 36522415371 QIE qieuser DOXYCYCLINE HYCLATE 100 MG CAPS Take 1 capsule (100 mg total) by mouth every 12 (twelve) hours for 5 days. 7 doxycycline hyclate 56176446408 QIE qieuser ASPIRIN LOW DOSE 81 MG TBEC Take 1 tablet (81 mg total) by mouth daily for 30 days. 7 aspirin 49503510455 QIE qieuser ceftriaxone mason calero Rocephin 2G IV or IM [id number] 9 ceftriaxone mason Stern RN Medications Administered No information available. Allergies, Adverse Reactions, Alerts No information available. 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 Procedures No information available. Vital Signs Date Name Value Unit Description BMI (Body Mass Index) 20.34 kg/m2 Bod y Mass Index (Ratio) Body Temperature 98.2 [degF] temperat ure E&M BP Diastolic 76 mm[Hg] blood pressu re, diastolic BP Systolic 148 mm[Hg] blood pressur e, systolic Heart Rate 120 /min pulse rate Height 68 [in_us] height E&M Respiratory Rate 16 /min respirat ory rate E&M Weight Measured 133.8 [lb_av] weight E& M Weight Measured 133.8 [lb_av] weight E& M Immunizations No information available. Advance Directives Directive Description Start Date NO ADVANCED DIRECTIVES AT THIS TIME 2023
--- OUTSIDE RECORDS SUMMARY | 2025-02-20 12:54 | XMS_ITS | Clinical Summary ---
Author Organization [facility] Address [address] [place] [address] Phone Care Team Providers Care Solar Energy Advisor Name Role Phone Mario Presley MD Unavailable Unavailabl e Allergies No known active allergies Medications methocarbamol (ROBAXIN) 750 mg Take 750 mg by mouth. 2 x daily Active Acetaminophen-Co deine (TYLENOL #3) 300-30 mg per tablet Take 1 Tab by mouth. 2 x daily Active lovastatin (MEVACOR) 40 mg tablet Take 40 mg by mouth nightly. Active amLODIPine (NORVASC) 10 mg tablet Take 10 mg by mouth daily. Active Active Problems Problem Noted Date Diagnosed Date Blood loss anemia 11/27/2015 Chronic lymphocytic leukemia 11/27/2015 Immunizations Immunization Administration Dates Next Due Influenza Vaccine, Unspecified Formulation 12/30 Pneumococcal Polysaccharide 23 Valent 12/30/2013 Medical History Medical History Date Comments Hypertension Hyperlipemia Family History Medical History Relation Name Comments Heart Attack Brother 1 Gabriel Heart Surgery Brother 2 Pankaj Heart Surgery Brother 3 Jefry Heart Attack Father Heart Attack Mother Heart Attack Sister Garrison Relation Name Status Comments Brother 1 Gabriel Brother 2 Pankaj Alive Brother 3 Jefry Alive Father Mother Sister Garrison Social History Tobacco Use Types Packs/Day Years Used Date Smoking Tobacco: Former Smokeless Tobacco: Never Alcohol Use Standard Drinks/Week Comments No 0 (1 standard drink = 0.6 oz pur e alcohol) Sex and Gender Information Value Date Recorded Sex Assigned at Not on file Legal Sex Male 10:03 AM EDT Gender Identity Not on file Sexual Orientation Not on file Last Filed Vital Signs Vital Sign Reading Time Taken Comments Blood Pressure 124/70 11/27/2015 9:22 AM EDT Pulse 80 11/27/2015 9:22 AM EDT Temperature 36.5 C (97.7 F) 11/27/2015 9:22 AM EDT Respiratory Rate 16 11/27/2015 9:22 AM EDT Oxygen Saturation - - Inhaled Oxygen Concentration - - Weight 62.2 kg (137 lb 3.2 oz) 11/27/2015 9:22 A M EDT Height 172.7 cm (5' 8 ) 11/27/2015 9:22 AM EDT Body Mass Index 20.86 11/27/2015 9:22 AM EDT Plan of Treatment Health Maintenance Due Date Last Done Comments Annual Wellness Exam 1952 Hepatitis C Screening 08/08/1967 DTaP/TDaP/Td (1 - Tdap) 1968 Zoster (1 of 2) 1968 Cologuard 1994 Colon Cancer Screening 1994 Colonoscopy 1994 FIT 1994 Sigmoidoscopy 1994 Virtual Colonography 1994 Pneumococcal Vaccine 50+ (2 of 2 - PCV) 12/30/2014 12/30/2013 RSV or 60+ (1 - 1-d ose 75+ series) 2024 COVID-19 Vaccine (1 - 2024-2 6 season) 2024 Influenza Vaccine (#1) 2024 12/30/2013 Hepatitis B Vaccine Aged Out No longe r eligible based on patient's age to complete this topic Meningococcal B Vaccine Aged Out No l onger eligible based on patient's age to complete this topic Insurance [facility] CHOICE PLUS MEDICARE [place] PART A AND B CHOICE PLUS MEDICARE [place] PART A AND B Care Teams Solar Energy Advisor Relationship Specialty Start Date End Date Mario Presley MD PCP - Hematology/Oncology Internal Medicine-Medical Oncology 11/18/14
--- OUTSIDE RECORDS SUMMARY | 2025-02-20 12:54 | XMS_ITS | Clinical Summary ---
Author Organization [employer] ([place], [place], [place], [place]) Address [address] [place] [address] Care Team Providers Care Director Of Product Design Name Role Phone Garrett Ball MD Primary Care Provider [phone] Allergies No known active allergies Medications cefTRIAXone (ROCEPHIN) 2 g in NS 50 mL KVNG IVPB Inject 2 g intravenously daily To recive daily as outpatient till 09/30/2023. 0 Active Active Problems Problem Noted Date Diagnosed Date Sepsis due to pneumonia 09/20/2023 Pneumonia 09/20/2023 09/20/2023 Chronic lymphocytic leukemia 11/27/2015 Social History Tobacco Use Types Packs/Day Years Used Date Smoking Tobacco: Never Smokeless Tobacco: Never Tobacco Cessation:Counseling Given: No Alcohol Use Standard Drinks/Week Comments Never 0 (1 standard drink = 0.6 oz pur e alcohol) Utilities Answer Date Recorded In the past 12 months, has t he [employer], [employer], oil, or water [employer] threatened to shut off services in your home? No 09/20/2023 Food Insecurity Answer Date Recorded Within the past 12 months, y ou worried that your food would run out before you got money to buy more. Never true 09/20/2023 Within the past 12 months, t he food you bought just didn't last and you didn't have money to get more. Never true 09/20/2023 Transportation Needs Answer Date Record ed In the past 12 months, has l ack of reliable transportation kept you from medical appointments, meetings, work or from getting things needed for daily living? No 09/20/2023 Financial Resource Strain Answer Date R ecorded How hard is it for you to pa y for the very basics like food, housing, medical care, and heating? Would you say it is: Not hard at all 09/20/2023 Employment Answer Date Recorded Do you want help finding or keeping work or a job? I do not need or want help 09/20/2023 Family and Community Support Answer Graham e Recorded If for any reason you need h elp with day-to-day activities such as bathing, preparing meals, shopping, managing finances, etc., do you get the help you need? I don't need any help 09/20/2023 Feeling Lonely or Isolated 0 09/19 Educational Attainment Answer Date Parveen rded Do you speak a language other than [place]ian at [facility]? No 09/20/2023 Do you want help with school or training? For example, starting or completing job training or getting a high school diploma, GED or equivalent. No 09/20/2023 Physical Activity Answer Date Recorded Number of minutes of exercise per week 120 09/20/2023 Substance Use Answer Date Recorded How many times in the past y ear have you used prescription drugs for non-medical reasons? Never 09/20/2023 How many times in the past year have you used [place] legal drugs? Never 09/20/2023 Sex and Gender Information Value Date Recorded Sex Assigned at Not on file Legal Sex Male 3:19 PM CDT Gender Identity Not on file Sexual Orientation Not on file Last Filed Vital Signs Vital Sign Reading Time Taken Comments Blood Pressure 133/79 09/26/2023 9:35 AM EDT Pulse 102 09/26/2023 9:35 AM EDT Temperature 36.4 C (97.6 F) 09/26/2023 9:35 AM EDT Respiratory Rate 17 09/26/2023 9:35 AM EDT Oxygen Saturation 100% 09/26/2023 9:35 AM EDT Inhaled Oxygen Concentration - - Weight 99.8 kg (220 lb) 09/20/2023 6:02 PM EDT Height 172.7 cm (5' 8 ) 09/20/2023 6:02 PM EDT Body Mass Index 33.45 09/20/2023 6:02 PM EDT Plan of Treatment Health Maintenance Due Date Last Done Comments CT Colonography 1949 Colonoscopy 1949 Colorectal Cancer Screening 1949 FOBT/FIT 1949 Fit-DNA (Cologuard) 1949 Sigmoidoscopy 1949 Depression Screening (12+) 1961 Hepatitis C Screening 08/08/1967 DTAP/TDAP/TD VACCINES (1 - Tdap) 1968 Shingles Vaccine (Zoster) (1 of 2) 1968 COVID-19 VACCINE (2 - Pfizer risk series) 02/11/2021 01/21/2021 Pneumococcal 50+ years (3 of 3 - PCV) 07/13/2022 07/13/2021, 12/30/2013, 06/18/2013 Medicare Initial AWV [id number] 05/02/2023 Falls Risk Screening 05/01/2024 Respiratory Syncytial Virus (RSV) Adult or (1 - 1-dose 75+ series) 2024 Tobacco Cessation Counseling and Screening (12+) 09/19/2024 09/20/2023 Influenza Vaccine (#1) 2024 Insurance [employer] MEDICARE HMO Advance Directives For more information, please contact: [phone] * Full Code (Latest Code Status on File) Date Activated Date Inactivated Comments 09/20/2023 4:06 PM 09/26/2023 2:54 PM Care Teams Director Of Product Design Relationship Specialty Start Date End Date Garrett Ball MD [address] [place] [address] PCP - General Family Medicine 09/26/23
--- OUTSIDE RECORDS SUMMARY | 2025-02-20 12:55 | XMS_ITS | Referral Summary ---
Author Organization [employer] ([place], [place], [place], [place]) Address [address] [place] [address] Care Team Providers Care Outreach Rep Name Role Phone Garrett Ball MD Primary Care Provider [phone] Allergies No known active allergies Medications cefTRIAXone [...] the past 12 months, has t he [employer], [employer], oil, or water [employer] threatened to shut off services in your [...] Do you speak a language other than Somali at [facility]? No 09/20/2023 Do you want help [...] 09/20/2023 6:02 PM EDT Plan of Treatment Not on file Insurance [employer] MEDICARE HMO Advance Directives For more information, please contact: [phone] * Full Code (Latest Code Status on File) Date Activated Date Inactivated Comments 09/20/2023 4:06 PM 09/26/2023 2:54 PM Care Teams Outreach Rep Relationship Specialty Start Date End Date Garrett Ball MD [address] [place] [address] PCP - General Family Medicine 09/26/23
--- OUTSIDE RECORDS SUMMARY | 2025-02-20 12:55 | XMS_ITS | Clinical Summary ---
Author Organization [facility] Address [address] [place] [id number] Care Team Providers Care Respiratory Support Technician Name Role Phone Unavailable Primary Care Provider Unavailabl e Source Comments [facility] is fully rolled out with thefollowing exceptions:General Clinical Research [facility] Social History Tobacco Use Types Packs/Day Years Used Date Smoking Tobacco: Never Assessed Sex and Gender Information Value Date Recorded Sex Assigned at Not on file Legal Sex Male 7:49 PM EDT Gender Identity Not on file Sexual Orientation Not on file Plan of Treatment Health Maintenance Due Date Last Done Comments MMR IMMUNIZATION (1 of 1 - S tandard series) 1950 DTAP/Tdap/Td IMMUNIZATION (1 - Tdap) 1956 VARICELLA IMMUNIZATION (1 of 2 - 13+ 2-dose series) 1962 Respiratory Syncytial Virus (RSV) >60yo or (1 - 1-dose 75+ series) 2024 AMB SEASONAL FLU VACCINE (#1) 12/30/2024 COVID-19 Vaccine ( - 2023-2 5 season) 2024 HEPATITIS B IMMUNIZATION Aged Out No longer eligible based on patient's age to complete this topic HIB IMMUNIZATION Aged Out No longer e ligible based on patient's age to complete this topic HPV IMMUNIZATION Aged Out No longer e ligible based on patient's age to complete this topic IPV IMMUNIZATION Aged Out No longer e ligible based on patient's age to complete this topic MCV4 IMMUNIZATION Aged Out No longer eligible based on patient's age to complete this topic MENINGOCOCCAL B VACCINE Aged Out No l onger eligible based on patient's age to complete this topic Respiratory Syncytial Virus (RSV) <20mo Aged Out No longer eligible b ased on patient's age to complete this topic Insurance * Guarantor: [employer] Account Type Relation to Patient Date of Phone Billing Address [facility] Reference Lab Self 1950 [address] [place], [place] [id number] [place] [address] on file
--- OUTSIDE RECORDS SUMMARY | 2025-02-20 12:55 | XMS_ITS | Clinical Summary ---
Author Organization [facility] Address [address] [place] [address] Care Team Providers Care Venetian Blind Machine Operator Name Role Phone Garrett Ball MD Primary Care Provider [phone] Social History Tobacco Use Types Packs/Day Years Used Date Smoking Tobacco: Never Alcohol Use Standard Drinks/Week Comments No 0 (1 standard drink = 0.6 oz pure alcohol) Alcoholic Drinks/day: Never Drank Alcohol Sex and Gender Information Value Date Recorded Sex Assigned at Not on file Legal Sex Male 6:47 PM EDT Gender Identity Not on file Sexual Orientation Not on file Last Filed Vital Signs Vital Sign Reading Time Taken Comments Blood Pressure 142/89 09/20/2023 11:47 AM EDT Pulse 105 09/20/2023 11:47 AM EDT Temperature 35 C (95 F) 09/20/2023 11:47 AM EDT Respiratory Rate 35 09/20/2023 11:4 7 AM EDT Oxygen Saturation 93% 09/20/2023 11: 47 AM EDT 4L Inhaled Oxygen Concentration - - Weight 67.1 kg (147 lb 15.9 oz) 013 11:32 AM EDT Height 170.2 cm (5' 7 ) 06/05/2012 10:5 6 AM EST Body Mass Index 23.18 06/05/2012 10:56 AM EST Plan of Treatment Health Maintenance Due Date Last Done Comments [facility]-Depression Screening 1950 [facility]-/Child/Adol SDOH Screenings 1950 [facility]- SDOH Screenings 08/08/1967 [facility]-Adult SDOH Screenings 08/08/1967 [facility]-DTaP,Tdap,and Td Vaccine s (1 - Tdap) 1968 CT Colonography 1994 Colonoscopy 1994 FIT-DNA 1994 FIT 1994 Sigmoidoscopy 1994 [facility]-Zoster Vaccines (1 of 2) 08/08/1999 FOBT 11/26/2016 11/27/2015 [facility]-Colorectal Cancer Screening 11/26/2016 [facility]-Pneumococcal Vaccine: 50 + Years (2 of 2 - PCV) 07/13/2022 07/13/2021, 12/30/2013, 06/18/2013 [facility]-RSV Vaccine: 60+ Years o r (1 - 1-dose 75+ series) 2024 [id number] Vaccine (2 - 2024- season) 2024 01/21/2021 [facility]-Influenza Vaccine (#1) 2024 12/30/2013 HPV Vaccines Aged Out No longer eligi ble based on patient's age to complete this topic [facility]-HIB Vaccines Aged Out No longer e ligible based on patient's age to complete this topic [facility]-Hepatitis A Vaccines Aged Out No longer eligible based on patient's age to complete this topic [facility]-IPV Vaccines Aged Out No longer e ligible based on patient's age to complete this topic [facility]-Rotavirus Vaccines Aged Out No lo nger eligible based on patient's age to complete this topic Care Teams Venetian Blind Machine Operator Relationship Specialty Start Date End Date Garrett Ball MD PCP - General 09/11/20
== END 2025-02-19 23:59 | disposition home or self-care (01) ==
LOC: LAB.DROPOF 02-20 12:47
PROVIDERS: PCP Family Medicine; Visit Provider Family Medicine
DX: C95.90 Leukemia, unspecified not having achieved remission (principal); Z12.5 Encounter for screening for malignant neoplasm of prostate; Z13.6 Encounter for screening for cardiovascular disorders
CPT/HCPCS: 80053; 80061; 85007; 85025; G0103